=== PATIENT | female | born 1940 | race Caucasian/White ===

== ENCOUNTER 2022-12-04 19:07 | Emergency (ER) | payer BC, MEDICARE ==
[2022-12-04] MEDS ORDERED: Bacitracin 1 PK ONE (21:49)
[2022-12-04] MEDS ORDERED: Acetaminophen 500 MG TAB ONE (21:49)
[2022-12-04] MEDS ORDERED: Boostrix 0.5 ML (Tdap) VIAL (>/=7 yrs of age) ONE (22:00)
== END 2022-12-05 03:15 ==
LOC: ERS 19:07
DX: S01.81XA Laceration without foreign body of other part of head, initial encounter (principal); S80.02XA Contusion of left knee, initial encounter; Y04.8XXA Assault by other bodily force, initial encounter; Z23 Encounter for immunization
CPT/HCPCS: 70450; 90471; 90715